=== PATIENT | female | born 1960 | race African-American/Black ===

== ENCOUNTER 2022-05-29 19:11 | Emergency (ER) | payer SELFPAY ==
[~2022-05-29] VITALS: Ht 157.5 cm; Wt 49.9 kg
--- NOTE | 2022-05-29 19:12 | NUR ---
BIBA, ACCOMPANIED BY [place] [facility]
[2022-05-29 19:27] VITALS: BP 136/85
--- NOTE | 2022-05-29 21:25 | NUR ---
pt taken to chair c
[2022-05-29] MEDS ORDERED: IBUPROFEN 600 MG TAB PO ONE (22:00)
[2022-05-29] MEDS ORDERED: IBUP-2213 PO (22:21)
[2022-05-29] MEDS ORDERED: LID5T TP (22:21)
[2022-05-29] MEDS ORDERED: LIDOCAINE 5% 1 EA PATCH TP ONE (22:25)
--- NOTE | 2022-05-29 22:50 | NUR ---
Patient discharged with v/s stable. Written and verbal after care instructions given and explained. Patient alert, oriented and verbalized understanding of instructions. Ambulatory with steady gait. All questions addressed prior to discharge. ID band removed. Patient advised to follow up with PMD. Rx of IBUPROFEN & LODOCAINE PATCH given. Patient educated on indication of medication including possible reaction and side effects. Opportunity to ask questions provided and answered.
== END 2022-05-29 22:50 | disposition home or self-care (01) ==
LOC: MED 19:11
DX: S39.012A Strain of muscle, fascia and tendon of lower back, initial encounter (principal); S63.502A Unspecified sprain of left wrist, initial encounter; S50.02XA Contusion of left elbow, initial encounter; I10 Essential (primary) hypertension; M19.90 Unspecified osteoarthritis, unspecified site; F17.200 Nicotine dependence, unspecified, uncomplicated; Z72.89 Other problems related to lifestyle; W18.30XA Fall on same level, unspecified, initial encounter; Y93.89 Activity, other specified; Y92.89 Other specified places as the place of occurrence of the external cause; Y99.8 Other external cause status
CPT/HCPCS: 73080; 73090; 99284